=== PATIENT | female | born 1945 | race Caucasian/White ===

== ENCOUNTER 2019-05-29 12:27 | Emergency (ER) | payer OTHER ==
--- NOTE | 2019-05-29 13:02 | ER ---
Nurse's Notes [facility] Name: Jose Merchant Age: 73 yrs Sex: Female : 1945 Arrival Date: 05/29/2019 Time: 12:30 Bed 12 Private MD: Diagnosis: Acute pharyngitis Presentation: 05/29 12:34 Presenting complaint: Patient states: sore throat that began last night. "It feels like ss strep." Denies fever. Transition of care: patient was not received from another setting of care. Onset of symptoms was May 28, 2019. Risk Assessment: Do you want to hurt yourself or someone else? Patient reports no desire to harm self or others. Initial Sepsis Screen: Does the patient meet any 2 criteria? No. Patient's initial sepsis screen is negative. Does the patient have a suspected source of infection? No. Patient's initial sepsis screen is negative. Care prior to arrival: None. 12:34 Method Of Arrival: Ambulatory ss 12:34 Acuity: CLEMENTE 4 ss Historical: - Allergies: 12:36 PENICILLINS; ss - Home Meds: 12:36 None [Active]; ss - PMHx: 12:36 None; ss - PSHx: 12:36 None; ss - Immunization history:: Adult Immunizations up to date. - Social history:: Smoking status: Patient uses tobacco products, "I vape". - Ebola Screening: : Patient denies exposure to infectious person Patient denies travel to an Ebola-affected area in the 21 days before illness onset. Screenin:41 Abuse screen: Denies threats or abuse. Denies injuries from another. Nutritional ss screening: No deficits noted. Tuberculosis screening: Never had TB. Fall Risk None identified. Assessment: 12:41 General: Appears in no apparent distress. comfortable, Behavior is calm, cooperative, ss Denies fever, feeling ill, fatigue, chills. Pain: Complains of pain in throat Pain currently is 7 out of 10 on a pain scale. Quality of pain is described as sharp, sore," like there are fish bones or glass in there." Pain began "last night" Is continuous. Neuro: Level of Consciousness is awake, alert, obeys commands, Oriented to person, place, time, situation. Respiratory: Airway is patent Respiratory effort is even, unlabored, Respiratory pattern is regular, symmetrical, Breath sounds are clear bilaterally. Respiratory: Denies cough, shortness of breath pain with respiration, pain with movement. EENT: Throat is reddened bilaterally. Derm: Skin is intact, is healthy with good turgor, Skin is pink, warm \\T\\ dry. normal. Musculoskeletal: Circulation, motion, and sensation intact. Range of motion: intact in all extremities, Swelling absent. 13:10 Reassessment: Pt left prior to receiving dc papers. Vital Signs: 12:36 BP 118 / 62; Pulse 65; Resp 16; Temp 98.2(TE); Pulse Ox 99% on R/A; Weight 49.9 kg; ss Height 5 ft. 2 in. (157.48 cm); Pain 7/10; 12:36 Body Mass Index 20.12 (49.90 kg, 157.48 cm) ED Course: 12:30 Patient arrived in ED. as 12:34 Triage completed. ss 12:36 [facility]ibode[facility]-C [facility]. kb 12:36 Anirudh Paz MD is Attending Physician. kb 12:36 Arm band placed on right wrist. ss 12:41 Krystal Villalpando RN is Primary Nurse. ss 12:41 Patient has correct armband on for positive identification. Bed in low position. Call ss light in reach. 13:09 No provider procedures requiring assistance completed. Patient did not have IV access ss during this emergency room visit. Administered Medications: No medications were administered Outcome: 13:02 Discharge ordered by . kb 13:09 Discharged to home ambulatory. ss 13:09 Condition: good 13:09 Discharge instructions given to patient, Instructed on discharge instructions, follow up and referral plans. Demonstrated understanding of instructions, follow-up care. 13:10 Patient left the ED. Signatures: Maya Thibodeaux FNP-C FNP-Tamar Mckeon as Krystal Villalpando, BINDU RN
--- NOTE | 2019-05-29 13:02 | EDPHYS ---
Physician Documentation [facility] Name: Jose Merchant Age: 73 yrs Sex: Female : 1945 Arrival Date: 05/29/2019 Time: 12:30 Bed 12 Private MD: ED Physician Anirudh Paz HPI: 05/29 13:00 This 73 yrs old Female presents to ER via Ambulatory with complaints of Sore kb Throat. 13:00 The patient presents with sore throat. The patient describes throat pain as constant. kb Onset: The symptoms/episode began/occurred last night. Severity of symptoms: At their worst the symptoms were moderate, in the emergency department the symptoms are unchanged. Modifying factors: The symptoms are alleviated by nothing, the symptoms are aggravated by swallowing, Patient's oral intake status: good Denies contact with similarly ill indivduals. Associated signs and symptoms: Pertinent positives: Sore throat. The patient has not experienced similar symptoms in the past. The patient has not recently seen a physician. Historical: - Allergies: 12:36 PENICILLINS; ss - Home Meds: 12:36 None [Active]; ss - PMHx: 12:36 None; ss - PSHx: 12:36 None; ss - Immunization history:: Adult Immunizations up to date. - Social history:: Smoking status: Patient uses tobacco products, "I vape". - Ebola Screening: : Patient denies exposure to infectious person Patient denies travel to an Ebola-affected area in the 21 days before illness onset. ROS: 13:00 Constitutional: Negative for fever, chills, and weight loss, Neck: Negative for injury, kb pain, and swelling, Cardiovascular: Negative for chest pain, palpitations, and edema, Respiratory: Negative for shortness of breath, cough, wheezing, and pleuritic chest pain, Abdomen/GI: Negative for abdominal pain, nausea, vomiting, diarrhea, and constipation, Back: Negative for injury and pain, MS/Extremity: Negative for injury and deformity, Skin: Negative for injury, rash, and discoloration, Neuro: Negative for headache, weakness, numbness, tingling, and seizure. 13:00 ENT: Positive for sore throat. Exam: 13:00 Constitutional: This is a well developed, well nourished patient who is awake, alert, kb and in no acute distress. Head/Face: Normocephalic, atraumatic. Neck: Trachea midline, no thyromegaly or masses palpated, and no cervical lymphadenopathy. Supple, full range of motion without nuchal rigidity, or vertebral point tenderness. No Meningismus. Chest/axilla: Normal chest wall appearance and motion. Nontender with no deformity. No lesions are appreciated. Cardiovascular: Regular rate and rhythm with a normal S1 and S2. No gallops, murmurs, or rubs. Normal PMI, no JVD. No pulse deficits. Respiratory: Lungs have equal breath sounds bilaterally, clear to auscultation and percussion. No rales, rhonchi or wheezes noted. No increased work of breathing, no retractions or nasal flaring. Abdomen/GI: Soft, non-tender, with normal bowel sounds. No distension or tympany. No guarding or rebound. No evidence of tenderness throughout. Skin: Warm, dry with normal turgor. Normal color with no rashes, no lesions, and no evidence of cellulitis. MS/ Extremity: Pulses equal, no cyanosis. Neurovascular intact. Full, normal range of motion. Neuro: Awake and alert, GCS 15, oriented to person, place, time, and situation. Cranial nerves II-XII grossly intact. Motor strength 5/5 in all extremities. Sensory grossly intact. Cerebellar exam normal. Normal gait. 13:00 ENT: Posterior pharynx: Airway: normal, no evidence of obstruction, Tonsils: are normal in appearance, Uvula: normal, midline, swelling, is not appreciated, erythema, that is moderate. Vital Signs: 12:36 BP 118 / 62; Pulse 65; Resp 16; Temp 98.2(TE); Pulse Ox 99% on R/A; Weight 49.9 kg; ss Height 5 ft. 2 in. (157.48 cm); Pain 7/10; 12:36 Body Mass Index 20.12 (49.90 kg, 157.48 cm) ss MDM: 12:36 Patient medically screened. kb 12:59 Data reviewed: vital signs, nurses notes. Data interpreted: Pulse oximetry: on room air kb is 99 %. Interpretation: normal. Counseling: I had a detailed discussion with the patient and/or guardian regarding: the historical points, exam findings, and any diagnostic results supporting the discharge/admit diagnosis, lab results, the need for outpatient follow up, a family practitioner, to return to the emergency department if symptoms worsen or persist or if there are any questions or concerns that arise at home. 05/29 12:37 Order name: Strep; Complete Time: 13:00 kb 05/29 12:59 Order name: Throat Culture EDMS Administered Medications: No medications were administered Disposition: 15:14 Co-signature as Attending Physician, Anirudh Paz MD I agree with the assessment and alysa plan of care. Disposition: 05/29/19 13:02 Discharged to Home. Impression: Acute pharyngitis. - Condition is Stable. - Discharge Instructions: Pharyngitis, [id number], Sore Throat, [id number]. - Medication Reconciliation Form, Thank You Letter, Antibiotic Education, Prescription Opioid Use form. - Follow up: Emergency Department; When: As needed; Reason: Worsening of condition. Follow up: Private Physician; When: 2 - 3 days; Reason: Recheck today's complaints, Continuance of care, Re-evaluation by your physician. Signatures: Dispatcher [employer] EDMaya Melendez, BIKE SHOP MANAGER-C BIKE SHOP MANAGER-Anirudh Modi MD MD cha Smirch, Shelby, RN RN ss Corrections: (The following items were deleted from the chart) 13:10 13:02 05/29/2019 13:02 Discharged to Home. Impression: Acute pharyngitis. Condition is ss Stable. Forms are Medication Reconciliation Form, Thank You Letter, Antibiotic Education, Prescription Opioid Use. Follow up: Emergency Department; When: As needed; Reason: Worsening of condition. Follow up: Private Physician; When: 2 - 3 days; Reason: Recheck today's complaints, Continuance of care, Re-evaluation by your physician. kb
== END 2019-05-29 13:10 | disposition home or self-care (01) ==
LOC: ER 12:27
DX: J02.9 Acute pharyngitis, unspecified (principal); Z72.0 Tobacco use; Z88.0 Allergy status to penicillin
CPT/HCPCS: 87070; 87081; 99281